=== PATIENT | female | born 1990 | race African-American/Black ===

== ENCOUNTER 2016-05-31 09:22 | Emergency (ER) | payer OTHER ==
[~2016-05-31] VITALS: Ht 170.2 cm; Wt 59.0 kg
[2016-05-31] MEDS ORDERED: birth control patch (09:30)
[2016-05-31 10:33] LABS: BASO % 0.1 % (0.0-1.0); EOS # 0.1 K/mm3 (0.0-0.50); LARGE UNSTAINED CELL % 0.4 % (0.0-4.0); LYMPH # 1.3 K/mm3 (1.5-6.5); LYMPH % 12.1 % (24.0-44.0); MEAN CORPUSCULAR HEMOGLOBIN 22.9 pg (27.0-33.0); MEAN CORPUSCULAR HGB CONC 30.5 g/dl (32.0-36.5); MEAN CORPUSCULAR VOLUME 75.2 fl (80.0-96.0); MONO # 0.2 K/mm3 (0.0-0.8); MONO % 1.6 % (0.0-5.0); NEUTROPHILS # 8.9 K/mm3 (1.8-7.7); NEUTROPHILS % 84.8 % (36.0-66.0); PLATELET COUNT, AUTOMATED 249 k/mm3 (150-450); RED CELL DISTRIBUTION WIDTH 13.7 % (11.5-14.5); WHITE BLOOD COUNT 10.5 K/mm3 (4.0-10.0)
--- NOTE | 2016-05-31 10:42 | REP ---
AP PORTABLE CHEST: 05/31/2016. Clinical history: Syncope/near-syncope. No prior study. Findings: Lungs are well inflated and clear. The heart, mediastinal and hilar contours were normal for portable technique. The airway and aorta are unremarkable. Bones are intact. There is no free air under the diaphragm. No pneumothorax, pneumomediastinum. Impression: 1. Negative portable chest. Signed by Param Gar MD 05/31/2016 10:33 A
[2016-05-31 10:45] LABS: CONTROL LINE HCG INT CTR LINE PRESENT
[2016-05-31 10:48] LABS: ANION GAP 10 MEQ/L (8-16); BLOOD UREA NITROGEN 10 MG/DL (7-18); CALCIUM LEVEL 9.2 MG/DL (8.5-10.1); CARBON DIOXIDE LEVEL 26 MEQ/L (21-32); CHLORIDE LEVEL 105 MEQ/L (98-107); CREATININE FOR GFR 0.96 MG/DL (0.55-1.02); GLOMERULAR FILTRATION RATE > 60.0 (>60); GLUCOSE, FASTING 95 MG/DL (70-105); POTASSIUM SERUM 3.7 MEQ/L (3.5-5.1); SODIUM LEVEL 141 MEQ/L (136-145)
--- NOTE | 2016-05-31 11:06 | REP ---
CT Head without contrast HISTORY: Syncope COMPARISON: None There is no intraparenchymal hemorrhage, acute infarct, mass or midline shift. The ventricular system is normal in appearance. There is no extra cerebral collection. There is no fracture. The visualized sinuses are clear. IMPRESSION: There is no intracranial lesion. Signed by Otto Longoria MD 05/31/2016 10:58 A
[2016-05-31 12:01] VITALS: BP 115/64
--- NOTE | 2016-05-31 16:41 | ECGEPIP ---
Stationary ECG Study [facility] - ED Test Date: 2016-05-31 Pat Name: Bassam Rucker Department: Room: - Gender: F [employer]: ct : 1990 Requested By: Filiberto August Order Number: [id number] Reading MD: Saloni Mcelroy Measurements Intervals [place] Rate: 64 P: 71 UT: 160 QRS: 40 QRSD: 94 T: 50 QT: 425 QTc: 440 Interpretive Statements SINUS RHYTHM WITH MARKED SINUS ARRHYTHMIA NO PRIOR FOR COMPARISON Electronically Signed On 05-31-2016 16:40:39 EDT by Saloni Mcelroy
== END 2016-05-31 12:10 | disposition home or self-care (01) ==
LOC: EDBD 09:22 → M ED 10:44
DX: R55 Syncope and collapse (principal)